=== PATIENT | male | born 1955 | race Two or more races ===

== ENCOUNTER 2023-12-13 07:30 | Outpatient (CLI) | payer OTHER | END 2023-12-13 07:37 | disposition home or self-care (01) | LOC: NUCLEAR 07:30 | DX: Z00.00 Encounter for general adult medical examination without abnormal findings (principal); R31.1 Benign essential microscopic hematuria; N52.9 Male erectile dysfunction, unspecified; R97.20 Elevated prostate specific antigen [PSA] | CPT/HCPCS: 78315; A9503 ==

== ENCOUNTER 2024-07-15 08:00 | Outpatient (CLI) | payer OTHER ==
[~2024-07-15] VITALS: Ht 170.2 cm; Wt 64.4 kg
[2024-07-15 12:07] LABS: HEMATOCRIT 40.8 % (39.0-48.0); HEMOGLOBIN 13.4 g/dL (13-16.00); MEAN CELL VOLUME 90.6 fL (80.0-100.00); MEAN CORPUSCULAR HEMOGLOBIN 29.8 pg (27.00-32.0); MEAN CORPUSCULAR HGB CONC 32.9 g/dl (32.0-36.0); PLATELET COUNT 265 K/uL (150-450); RED CELL DISTRIBUTION WIDTH 13.8 % (11.5-14.5)
[2024-07-15 12:10] LABS: PH,URINE 5.5 (5.0-8.0); URINE APPEARANCE Clear; URINE BILIRRUBIN Negative (NEGATIVE); URINE BLOOD Negative; URINE COLOR Yellow; URINE GLUCOSE Negative (NEGATIVE); URINE KETONE Negative (NEGATIVE); URINE LEUKOCYTE Negative; URINE NITRATE Negative; URINE PROTEIN Negative (NEGATIVE); URINE UROBILINOGEN 0.2 E.U./dl
[2024-07-15 12:15] LABS: URINE RBC 2.1 uL (0.0-20.8)
[2024-07-15 12:17] VITALS: BP 164/83
[2024-07-15] MEDS ORDERED: LOSARTAN POTASS25 MG PO (12:21)
[2024-07-15] MEDS ORDERED: LIPITOR40 MG PO (12:22)
[2024-07-15] MEDS ORDERED: PEPCID AC20 MG PO (12:22)
[2024-07-15] MEDS ORDERED: TAMS0.4C PO (12:22)
[2024-07-15 12:23] LABS: INR 1.02; PARTIAL THROMBOPLASTIN TIME 26.7 SECONDS (22.0-34.0); PROTHROMBIN TIME 11.1 SECONDS (9.0-11.5)
[2024-07-15] MEDS ORDERED: PREVACID30 MG PO (12:23)
[2024-07-15 12:32] LABS: URINE BACTERIA 1.2 uL (0.0-1933); URINE EPITHELIAL CELLS 0.1 uL (0.0-38.8); URINE WBC 0 uL (0.0-23.2)
[2024-07-15 12:53] LABS: CALCIUM 9.4 mg/dL (8.5-10.1); CREATININE SERUM 0.91 mg/dL (0.70-1.30); GFR 83.1
[2024-07-15 12:54] LABS: POTASSIUM 5.96 mEq/L (3.5-5.1)
[2024-07-15 15:46] LABS: RH POSITIVE
== END 2024-07-15 08:01 | disposition home or self-care (01) ==
LOC: RAD 08:00 → ADM 10:00 → CIR.AMB 07-23 10:00 → EDSTATUS 07-23 10:00 → SURH 07-23 10:00 → CIR.AMB 07-23 13:30
PROVIDERS: ATTEND Urology
DX: C61 Malignant neoplasm of prostate (principal)

== ENCOUNTER 2024-08-28 07:30 | Inpatient (IN) | payer OTHER ==
[~2024-08-28] VITALS: Ht 170.2 cm; Wt 68.0 kg
[~2024-08-28 07:30] MED LIST: LIPITOR40 MG PO; LOSARTAN POTASS25 MG PO; PEPCID AC20 MG PO; PREVACID30 MG PO; TAMS0.4C PO
[2024-08-28 09:01] VITALS: BP 150/89
[2024-08-28 09:36] LABS: HEMATOCRIT 41.8 % (39.0-48.0); HEMOGLOBIN 13.9 g/dL (13-16.00); MEAN CORPUSCULAR HEMOGLOBIN 29.6 pg (27.00-32.0); MEAN CORPUSCULAR HGB CONC 33.2 g/dl (32.0-36.0); PLATELET COUNT 271 K/uL (150-450)
[2024-08-28 09:41] LABS: PARTIAL THROMBOPLASTIN TIME 26.5 SECONDS (22.0-34.0); PROTHROMBIN TIME 10.9 SECONDS (9.0-11.5)
[2024-08-28 10:07] LABS: URINE APPEARANCE Clear; URINE BILIRRUBIN Negative (NEGATIVE); URINE BLOOD Negative; URINE COLOR Yellow; URINE GLUCOSE Negative (NEGATIVE); URINE KETONE 15 (NEGATIVE); URINE LEUKOCYTE Negative; URINE NITRATE Negative; URINE PROTEIN Negative (NEGATIVE); URINE UROBILINOGEN 0.2 E.U./dl
[2024-08-28 10:08] LABS: URINE BACTERIA 1.2 uL (0.0-1933); URINE EPITHELIAL CELLS 0.4 uL (0.0-38.8); URINE RBC 13.1 uL (0.0-20.8); URINE WBC 0.6 uL (0.0-23.2)
[2024-08-28 10:47] LABS: CALCIUM 9.8 mg/dL (8.5-10.1); CREATININE SERUM 0.88 mg/dL (0.70-1.30); GFR 86.38
[2024-08-28 11:02] LABS: POTASSIUM 5.43 mEq/L (3.5-5.1)
[2024-08-28 11:09] LABS: RH POSITIVE
[2024-09-10] MEDS ORDERED: CEFAZOLIN SODIUM 1,000 MG VIAL ONE ×2 (07:09→16:58)
[2024-09-10] MEDS ORDERED: ENOXAPARIN SODIUM 40 MG/0.4 ML SYRINGE SUBCUTANEO ONE (07:09)
[2024-09-10] MEDS ORDERED: BUPIVACAINE HCL/MPF 0.5% 30ML VIAL ONE (09:22)
[2024-09-10] MEDS ORDERED: HEMOSTATIC MATRIX 1 KIT KIT TOP ONE (11:16)
[2024-09-10] MEDS ORDERED: SURGIFLO APPLICATOR 1 EACH APPL TOP ONE (11:16)
[2024-09-10] MEDS ORDERED: SUGAMMADEX SODIUM 200 MG/2 ML VIAL IV ONE (12:48)
[2024-09-10] MEDS ORDERED: MORPHINE SULFATE 4 MG/ML VIAL IV ONE ×2 (13:40→14:25)
[2024-09-10] MEDS ORDERED: RINGERS SOLUTION,LACTATED 1,000 ML IV SCH (13:45)
[2024-09-10] MEDS ORDERED: OxyCODONE HCL/APAP UD (PERCOCET) PO PRN (13:45)
[2024-09-10] MEDS ORDERED: ONDANSETRON HCL 2 MG/ML VIAL IV PRN (13:45)
[2024-09-10] MEDS ORDERED: MORPHINE SULFATE 4 MG/ML CARTRIDGE IV PRN (13:45)
[2024-09-10] MEDS ORDERED: ONDANSETRON HCL 2 MG/ML VIAL ONE (14:16)
[2024-09-10] MEDS ORDERED: GABAPENTIN 300 MG CAPSULE PO SCH (17:00)
[2024-09-10] MEDS ORDERED: POLYETHYLENE GLYCOL 3350 17 GM BLIST.PACK PO SCH (17:00)
[2024-09-10] MEDS ORDERED: CEFAZOLIN SODIUM 1,000 MG VIAL IV SCH (18:00)
[2024-09-10 18:38] VITALS: BP 172/90; O2SAT 100
[2024-09-10] MEDS ORDERED: FAMOTIDINE/PF 20 MG/2 ML VIAL IV SCH (21:00)
[2024-09-11] VITALS: BP 149/80; O2SAT 100
[2024-09-11 06:54] LABS: HEMATOCRIT 41.2 % (39.0-48.0); HEMOGLOBIN 13.6 g/dL (13-16.00); MEAN CORPUSCULAR HEMOGLOBIN 29.3 pg (27.00-32.0); MEAN CORPUSCULAR HGB CONC 32.9 g/dl (32.0-36.0); PLATELET COUNT 247 K/uL (150-450); RED BLOOD COUNT 4.63 M/uL (4.00-6.00); RED CELL DISTRIBUTION WIDTH 13.1 % (11.5-14.5)
[2024-09-11 07:46] LABS: ALBUMIN 3.3 gm/dL (3.4-5.0); CALCIUM 8.8 mg/dL (8.5-10.1); CREATININE SERUM 1.04 mg/dL (0.70-1.30); GFR 71.23; POTASSIUM 5.41 mEq/L (3.5-5.1)
[2024-09-11] MEDS ORDERED: ENOXAPARIN SODIUM 40 MG/0.4 ML SYRINGE SUBCUTANEO SCH (09:00)
[2024-09-11] MEDS ORDERED: LOSARTAN POTASSIUM 25 MG TABLET PO SCH (09:00)
== END 2024-09-11 09:48 | disposition home or self-care (01) | DRG 708 ==
LOC: SURH 09-10 05:16 → O/R 09-10 05:16 → SURH 09-10 07:30
PROVIDERS: ADMIT Urology; ATTEND Urology
PROC: 8E0W4CZ Robotic Assisted Procedure of Trunk Region, Percutaneous Endoscopic Approach (ICD-10-PCS; 2024-09-10)
PROC: 0VT04ZZ Resection of Prostate, Percutaneous Endoscopic Approach (ICD-10-PCS; principal; 2024-09-10 12:30)
DX: C61 Malignant neoplasm of prostate (principal); Z20.822 Contact with and (suspected) exposure to COVID-19
CPT/HCPCS: 55866; S2900

== ENCOUNTER 2024-09-17 08:56 | Outpatient (CLI) | payer OTHER | END 2024-09-17 09:18 | disposition home or self-care (01) | LOC: TOM 08:56 | PROVIDERS: ATTEND Urology | DX: C61 Malignant neoplasm of prostate (principal) ==